=== PATIENT | female | born 1965 | race Caucasian/White ===

== ENCOUNTER → 2016-08-17 | Outpatient (CLI) | payer BC ==
[~2016-08-17] MED LIST: CIPR-255 PO; CLOP1TAB5 PO; FEXO1TAB46 PO; FLNIN NAE; METO25TA56 PO; NIAC1TAB52 PO; QUIN5TAB PO; ROSU5TAB PO
== END | disposition home or self-care (01) ==
LOC: C.PAPS 14:24
PROVIDERS: ATTEND Obstetrics & Gynecology
DX: Z01.419 Encounter for gynecological examination (general) (routine) without abnormal findings (principal)